=== PATIENT | female | born 1965 | race Caucasian/White ===

== ENCOUNTER 2021-10-26 21:45 | Emergency (ER) | payer BC ==
[~2021-10-26] VITALS: Ht 162.6 cm; Wt 84.8 kg
--- NOTE | 2021-10-26 21:51 | NUR ---
DR. JIMENEZ EVALUATING PT ON GUIDO
[2021-10-26 21:55] VITALS: BP 117/68
--- NOTE | 2021-10-26 21:57 | NUR ---
BIBA TAKEN TO BED #1
--- NOTE | 2021-10-26 22:05 | NUR ---
56 YO F BIBA FROM [facility] WITH C/C OF SYNCOPE. PER MEDIC FAMILY STATED PT STOOD UP BEGAN COMPLAINING OF CRAMP TO LEFT LEG, FAMILY SAT PT DOWN ON GROUND AND PT BECAME UNCONSCIOUS. MEDIC STATES FAMILY REPORTED PT WAS BLUE, MEDIC STATES PT WAS NORMAL COLOR FOR ETHNICITY UPON ARRIVAL AND WAS BEGANING TO WAKE UP. PT AT THIS TIME IS A&O X4, ABLE TO COMMUNICATE. PT STATES THIS IS THE FIRST SYNCOPE SHE HAS HAD. REPORTS SHE GETS LEG CRAMPS OFTEN. DENIES PAIN, REPORTS LEFT LEG DISCOMFORT, STATES IT STILL FEELS TIGHT. 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 HX:HDL AND HTN ALLERGY TO PCN
[2021-10-26] MEDS ORDERED: NACL 0.9% 1,000 ML IV ONE (22:25)
--- NOTE | 2021-10-26 22:42 | NUR ---
PT TAKEN TO CT.
--- NOTE | 2021-10-26 23:05 | NUR ---
URINE COLLECTED AND WALKED TO LAB
[2021-10-26 23:19] LABS: BASOPHILS % (AUTO) 0.5 % (0.0-2.0); EOSINOPHILS # (AUTO) 0.1 K/uL (0-0.4); EOSINOPHILS % (AUTO) 1.4 % (0.0-4.0); HEMATOCRIT 40.1 % (36-48); HEMOGLOBIN 13.5 g/dL (12.0-16.0); LYMPHOCYTES # (AUTO) 3.3 K/uL (2.5-16.5); LYMPHOCYTES % (AUTO) 32.1 % (20.5-51.1); MEAN CORPUSCULAR HEMOGLOBIN 31 pg (27-31); MEAN CORPUSCULAR HGB CONC 34 g/dL (33-37); MEAN CORPUSCULAR VOLUME 92.3 fL (80-94); MONOCYTES # (AUTO) 0.7 K/uL (0.8-1.0); MONOCYTES % (AUTO) 7.1 % (1.7-9.3); NEUTROPHILS # (AUTO) 6.1 K/uL (1.8-7.7); NEUTROPHILS % (AUTO) 58.9 % (42.2-75.2); PLATELET COUNT (AUTO) 269 K/uL (140-450); RED BLOOD CELL COUNT(AUTO) 4.35 MIL/uL (4.20-5.40); RED CELL DISTRIBUTION WIDTH 14.3 % (11.6-13.7); WHITE BLOOD COUNT (AUTO) 10.3 K/uL (4.8-10.8)
--- NOTE | 2021-10-26 23:30 | NUR ---
ATTEMPTED IV WITH NO SUCCESS. MD JIMENEZ MADE AWARE. MD JIMENEZ STATED TO HOLD OFF ON IV INSERTION AND FLUIDS AT THIS TIME. PATIENT TO BE STARTED ON PO FLUIDS TOLERATED. PATIENT DRINKING WATER, TOLERATING WELL. NO C/O NAUSEA OR VOMITING AT THIS TIME.
[2021-10-26 23:50] LABS: ALBUMIN 4.1 g/dL (3.4-5.0); ANION GAP 12.7 (8-16); ASPARTATE AMINOTRANSFERASE 34 U/L (15-37); CHLORIDE 102 mmol/L (98-107); CREATININE 1.1 mg/dL (0.6-1.3); GFR ARICAN-AMERICAN 66 mL/min (>90); GLUCOSE 173 mg/dL (74-106); SODIUM SERUM 141 mmol/L (136-145); TOTAL BILIRUBIN 0.4 mg/dL (0.0-1.0); UREA NITROGEN, BLOOD 27 mg/dL (7-18)
[2021-10-26 23:53] LABS: BARBITURATE, URINE NEGATIVE ng/ml (NEG <=200); BENZODIAZEPINE, URINE NEGATIVE ng/mL (NEG <=200); CANNABINOID, URINE NEGATIVE ng/mL (NEG <=50); COCAINE, URINE NEGATIVE ng/mL (NEG <=300); OPIATE, URINE NEGATIVE ng/mL (NEG <=2000); PHENCYCLIDINE SCREEN,URINE NEGATIVE ng/mL (NEG <=25)
[2021-10-26 23:56] LABS: POTASSIUM 2.7 mmol/L (3.5-5.1)
[2021-10-27] MEDS ORDERED: POTASSIUM CHLORIDE 10 MEQ TABER PO ONE
--- NOTE | 2021-10-27 00:21 | NUR ---
pt refused iv fluids, does not want to be stuck again. pt states she can drink water herself.
--- NOTE | 2021-10-27 00:29 | NUR ---
orthostatic bp reported to . ermd cleared pt for discharge
[2021-10-27 00:35] VITALS: BP 114/59
--- NOTE | 2021-10-27 00:35 | NUR ---
Patient discharged with v/s stable. Written and verbal after care instructions given and explained. Patient verbalized understanding. Ambulatory with steady gait. All questions addressed prior to discharge. Advised to follow up with PMD.
== END 2021-10-27 00:35 | disposition home or self-care (01) ==
LOC: MED 21:45
DX: R55 Syncope and collapse (principal); I10 Essential (primary) hypertension; E78.5 Hyperlipidemia, unspecified; Z88.0 Allergy status to penicillin
CPT/HCPCS: 36415; 70450; 80053; 80305; 84484; 84702; 85025; 93005; 99285; G0482